=== PATIENT | male | born 1955 | race Two or more races ===

== ENCOUNTER 2025-09-12 03:31 | Emergency (ER) | payer OTHER ==
[~2025-09-12] VITALS: Ht 167.6 cm; Wt 66.7 kg
[2025-09-12] MEDS ORDERED: LORAZEPAM 1 MG TABLET ONE (04:06)
[2025-09-12] MEDS: LORAZEPAM 1 MG TABLET PO ONE (04:11)
[2025-09-12 04:12] LABS: PLATELET COUNT (AUTO) 219 K/uL (150-450); RED BLOOD CELL COUNT(AUTO) 3.84 MIL/uL (4.5-6.0); RED CELL DISTRIBUTION WIDTH 12.9 % (11.5-15.0); WHITE BLOOD COUNT (AUTO) 4.8 K/uL (4.3-11.0)
[2025-09-12 04:27] LABS: CALCIUM, SERUM 8.9 mg/dL (8.5-10.1); CREATININE 0.6 mg/dL (0.6-1.3); SODIUM SERUM 124 mmol/L (136-145); UREA NITROGEN, BLOOD 10 mg/dL (7-18)
[2025-09-12 04:40] LABS: ASPARTATE AMINOTRANSFERASE 16 U/L (15-37); NT-PRO BNP 179 pg/mL (0-125); TOTAL PROTEIN, SERUM 7.1 g/dL (6.4-8.2)
[2025-09-12 06:26] VITALS: BP 144/77; TEMP 98.7; O2SAT 100
== END 2025-09-12 06:44 | disposition home or self-care (01) ==
LOC: ER 03:34
DX: F41.9 Anxiety disorder, unspecified (principal); I10 Essential (primary) hypertension; E11.9 Type 2 diabetes mellitus without complications; E78.00 Pure hypercholesterolemia, unspecified; Z60.2 Problems related to living alone; Z20.822 Contact with and (suspected) exposure to COVID-19
CPT/HCPCS: 36415; 71045-TC; 80048-TC; 80076-TC; 83880; 84484-TC; 85025-TC